=== PATIENT | female | born 1930 | race Caucasian/White ===

== ENCOUNTER 2017-02-04 03:01 | Observation (INO) | payer MEDICARE ==
[~2017-02-04] VITALS: Ht 157.5 cm; Wt 77.6 kg
[2017-02-04] VITALS (10 sets, daily range): BP systolic 129–178; BP diastolic 53–78; PULSE 55–80; RESP 17–19; O2SAT 94–98
[~2017-02-04 03:01] MED LIST: ACET-171 PO; AMLO5TAB2 PO; ASCO-294 PO; ASPI325T32 PO; ATOR40TA69 PO; CARV12.52 PO; CHOL200047 PO; CLOP75TA28 PO; DOCU-41 PO; FERR-74 PO; FURO40TA4 PO; GABA-500 PO; LISI-567 PO; MULT-1018 PO; NITR0.4T SL
--- NOTE | 2017-02-04 03:29 | ED.REPORT ---
HPI-Chest Pain 40 and Over Date of Service February 04, 2017 ED Provider: Payam Prince MD Pt is an 86 y/o female w/ a hx of NSTEMI Aug 2016, CAD s/p CABG x3, HTN, hyperlipidemia, CHF, chronic renal failure, presenting to the ED via EMS with her daughter c/o substernal chest pressure onset 1.5 hours prior to arrival. She has experienced similar symptoms previously which were related to cardiac disease. She was given nitro and morphine on route with some relief, but her chest pressure is still present at time of interview. She c/o associated SOB, peripheral edema which is unchanged. Pt denies nausea, vomiting, acid reflux. She has been seeing her pit furnace operator Dr. Lomeli multiple times recently for angina. Nursing Notes Stated Complaint: CHEST PAIN Chief Complaint: Chest Pain Nursing Notes Reviewed: Yes Allergies: Coded Allergies: codeine (Verified Allergy, Severe, 02/04/17) sulfadiazine (Verified Allergy, Severe, hives and swelling, 02/04/17) diltiazem HCl (Verified Allergy, Unknown, 02/04/17) enalapril maleate (Verified Allergy, Unknown, 02/04/17) enalaprilat dihydrate (Verified Allergy, Unknown, 02/04/17) iodine (Verified Allergy, Unknown, 02/04/17) shellfish derived (Verified Allergy, Unknown, 02/04/17) scopolamine (Verified Adverse Reaction, Severe, severe memory loss, ) Uncoded Allergies: grass, dust, maple trees (Allergy, Mild, 12/15/12) Scheduled Acetaminophen (Acetaminophen) 500 Mg Tablet 1,000 MG PO TID Amlodipine (Amlodipine) 5 Mg Tablet 5 MG PO DAILY Ascorbate Calcium (Vitamin C) 500 Mg Tablet 500 MG PO BID Aspirin (Aspirin) 325 Mg Tablet 325 MG PO DAILY Atorvastatin Calcium (Atorvastatin Calcium) 40 Mg Tablet 40 MG PO HS Carvedilol (Carvedilol) 12.5 Mg Tablet 6.25 MG PO BID Cholecalciferol (Vitamin D3) (Vitamin D3) 2,000 Unit Capsule 2,000 UNIT PO DAILY Clopidogrel (Clopidogrel) 75 Mg Tablet 75 MG PO DAILY Docusate Sodium (Colace) 100 Mg Capsule 100 MG PO BID Ferrous Sulfate (Feosol) 325 Mg Tablet 325 MG PO BIDWM Furosemide (Furosemide) 40 Mg Tablet 20 MG PO DAILY Gabapentin (Gabapentin) 100 Mg Capsule 100 MG PO TID Lisinopril (Lisinopril) 20 Mg Tablet 20 MG PO DAILY Multivitamin (Multi Vitamin Daily) 1 Each Tablet 0.5 TAB PO BID Scheduled PRN Nitroglycerin SL (Nitrostat) 0.4 Mg Tab.subl 0.4 MG SL Q5MIN PRN PRN For Chest Pain General Time Seen by MD: 03:29 Chief Complaint Chest pressure Hx Obtained From: Patient, EMS Arrived By: Ambulance Sudden in Onset?: Yes Onset Occurred: 1 - 4 hours ago Symptom Duration: Since onset Location: : Substernal Quality: Pressure Migration/Movement: Reports: None Severity: Current: Moderate Severity: Maximum: Moderate Recent Healthcare: Previous diagnosis Similar Sx Previous: Yes Past Medical History Past Medical History Congestive heart failure Coronary artery disease s/p three vessel bypass ~20 years ago Hypertension Hyperlipidemia NSTEMI 2015 Chronic renal failure Hx hyperkalemia Chronic normocytic anemia secondary to chronic kidney disease Chronic interstitial nephritis Past Surgical History Three-vessel Coronary Artery Bypass Graft ~20 years ago. Family History Denies family history of cardiovascular disease. Smoking History Never Smoker Social History Alcohol Use: "Social" Ambulatory Status Independent Review of Systems Constitutional: Denies: Chills, Fever Respiratory: Reports: Shortness of breath, Denies: Non-productive cough Cardiovascular: Reports: Chest pain, Edema GI: Denies: Abdominal pain, Nausea, Vomiting Complete sys rev & neg: except as marked. Physical Exam Initial Vital Signs Vital Signs (First) Date Time Temp Pulse Resp B/P Pulse Ox O2 Delivery O2 Flow Rate FiO2 5/25/17 03:08 36.3 57 18 178/53 94 Room Air Initial VS: Reviewed, Vital signs abnormal Head / Eyes: Atraumatic, Normocephalic, PERRL ENT: Mucous membranes moist, Conjunctiva normal, No scleral icterus Neck: Supple, Full range of motion Extremities: Vascular intact, Neuro intact Skin: Warm, Dry, No cyanosis Neurologic: Alert, Oriented, Nonfocal Psychiatric: Mood/affect normal, Behavior normal, Normal thought content General/Constitutional: Awake, Alert, Cooperative, Not toxic appearing Distress / Hydration: Positive: Distress mild Appearance / Presentation: Positive: Obese Hard of hearing Respiratory / Chest: Breath sounds NL, Breath sounds = bilat, No respiratory distress, No rales, No rhonchi, No wheezing, No retractions, No stridor, No chest tenderness Cardiovascular: Heart rate NL, Regular rhythm, Heart sounds NL, No gallop, No murmurs, No rubs, Cap refill not delayed, Peripheral circulation NL Gross edema of legs bilaterally Abdomen: Atraumatic, Soft, Non-tender, No guarding, No rebound, No distention, No palpable mass Interpretation & Diagnostics Lab Results Interpretation Result Diagram: 02/04/17 0358 02/04/17 0358 Test 02/04/17 03:58 02/04/17 05:00 White Blood Count 4.6th/mm3 (3.8-10.1) Red Blood Count 3.38mil/mm3 (3.90-5.20) Hemoglobin 11.1g/dL (12.0-15.6) Hematocrit 32.5% (35.0-46.0) Mean Corpuscular Volume 96.2fL (81-100) Mean Corpuscular Hemoglobin 32.8pg (27.0-35.0) Mean Corpuscular Hemoglobin Concent 34.2% (32.0-37.0) Red Cell Distribution Width 12.7% (12.3-15.4) Platelet Count 204bil/L (150-400) Neutrophils (%) (Auto) 41.9% (40-74) Lymphocytes (%) (Auto) 27.6% (14-46) Monocytes (%) (Auto) 14.5% (4-12) Eosinophils (%) (Auto) 15.4% (0-5) Basophils (%) (Auto) 0.2% (0-3) Sodium Level 136mEq/L (134-144) Potassium Level 4.7mEq/L (3.5-5.2) Chloride Level 96mEq/L (97-108) Carbon Dioxide Level 21mmol/L (18-29) Blood Urea Nitrogen 20mg/dL (8-27) Creatinine 1.19mg/dL (0.57-1.00) Estimat Glomerular Filtration Rate 61mL/min (>59) Glucose Level 112mg/dL (60-99) Calcium Level 8.9mg/dL (8.5-10.1) Magnesium Level 2.1mg/dL (1.6-2.6) Total Bilirubin 0.2mg/dL (0.0-1.2) Aspartate Amino Transf (AST/SGOT) 14U/L (0-50) Alanine Aminotransferase (ALT/SGPT) 8U/L (0-32) Alkaline Phosphatase 94U/L (25-165) Troponin T 0.010ug/L (0.0-0.011) Total Protein 7.0g/dL (6.4-8.4) Albumin 3.9g/dL (3.4-5.0) Activated Partial Thromboplast Time 28.9sec (22.8-33.0) ECG Interpretation ECG Interpretation: Sinus rhythm rate 56 LBBB Similar to prior EKG Time: 03:33 Interpreted by: ED physician X-Ray Chest Interpretation Chest Xray Interpretation: Surgical changes present View: Portable, 1 view Interpretation / Wet Read by: Wet read ED physician NL X-Ray Chest Findings: No infiltrate, No acute disease Re-Eval/Medical Decision Med Decision/Clinical Course 86-year-old with prolonged angina identical to prior DC and anginal episodes. Grudgingly better after treatment here. Treated with heparin, Nitropaste, and received aspirin. Admitted for completion of rule out protocol. Time of Eval: 05:06 Patient Status: Condition improved, Moderate relief, Pain improved Re-Evaluation/Progress Note: Pt rechecked. Informed pt of need for admission. Pt understands and agrees with plan for admission. All questions addressed. Consultation : Referral / Consult Name: Robert Tsang MD Consulted With: Hospitalist Call Returned at: 05:06 Crayon Sorting Machine Feeder: Will see patient, Agrees with eval, Agrees with plan, Accepts admit Counseled Regarding: Diagnosis, Lab results, Need for admission Discharge & Departure Primary Impression: Unstable angina Disposition: ADMITTED TO HOSPITAL Discharge Condition All VS Reviewed: Yes Condition: Stable Referrals: NOPCP (PCP) (Family) Crit Care Except Billable Proc Time Spent: 30-74 minutes Services Performed: Patient management by me, Time spent at bedside, Reviewing test results, Reviewing imaging, Discussing patient care, Documentation in record, Time with fam/surrogate Scribe Attestation Portions of this note were transcribed by Sathya De Los Santos. I, Dr. Ghotra personally performed the history, physical exam and medical decision-making; I reviewed and confirmed the accuracy of the information in the transcribed note. Signed by Ag Ty, 02/04/17 - 0345 Payam Prince MD February 04, 2017 03:29 SATHYA DE LOS SANTOS February 04, 2017 03:36
[2017-02-04] MEDS ORDERED: Heparin 25K Unit/500mL 0.45 NS 25,000 UNIT in IV Premix 1 EACH IV ONE ×2 (03:45→05:25)
[2017-02-04] MEDS ORDERED: Heparin 5,000 Unit/mL Inj IVPUSH ONE ×3 (03:45→05:45)
[2017-02-04 04:09] LABS: BASOPHILS % (AUTO) 0.2 % (0-3); EOSINOPHILS % (AUTO) 15.4 % (0-5); MONOCYTES % (AUTO) 14.5 % (4-12); Mean Corpuscular Hemoglobin 32.8 pg (27.0-35.0); Mean Corpuscular Volume 96.2 fL (81-100); NEUTROPHILS % (AUTO) 41.9 % (40-74)
[2017-02-04 04:28] LABS: Platelet Count 204 bil/L (150-400)
[2017-02-04] MEDS: Nitroglycerin 2% 1 Gm Ointment TOPICAL SCH ×2 (04:38→04:47)
[2017-02-04 04:45] LABS: Magnesium 2.1 mg/dL (1.6-2.6); TROPONIN T 0.01 ug/L (0.0-0.011)
[2017-02-04] MEDS ORDERED: Alum-Mag Hydrox-Simeth 30 mL Suspension PO PRN (05:25)
[2017-02-04] MEDS ORDERED: Ondansetron 2 mg/mL 2 mL Inj IVPUSH PRN (05:25)
[2017-02-04] MEDS ORDERED: Heparin 25K Unit/500mL 0.45 NS 25,000 UNIT in IV Premix 1 EACH IV SCH ×2 (05:45→10:50)
[2017-02-04 07:49] LABS: Creatine Kinase 46 U/L (21-215)
[2017-02-04] MEDS ORDERED: ATOR20TA65 PO (08:08)
[2017-02-04] MEDS ORDERED: FURO40TA4 PO (08:08)
[2017-02-04] MEDS ORDERED: GABA-500 PO (08:08)
[2017-02-04] MEDS: Ascorbic Acid 500 mg Tablet PO SCH ×2 (08:30→21:12)
[2017-02-04] MEDS ORDERED: MULTIVITAMIN PO SCH (08:30)
[2017-02-04] MEDS ORDERED: Nitroglycerin 2% 1 Gm Ointment TOPICAL SCH (08:30)
[2017-02-04] MEDS: Heparin 5,000 Unit/mL Inj IVPUSH PRN ×2 (08:37→08:42)
--- NOTE | 2017-02-04 08:52 | DRSVH ---
PROCEDURE: X-RAY CHEST ONE VIEW, PORTABLE ([id number]) INDICATIONS: CHEST PAIN TECHNIQUE: One view of the chest was acquired. COMPARISON: [facility], CR, XR CHEST 2VW, 08/28/2016, 18:18. [facility], CR , XR CHEST 1VW (PORTABLE), 08/27/2016, 5:11. FINDINGS: Surgical changes and devices: Median sternotomy wire is redemonstrated. Lungs and pleura: No pleural effusions or pneumothorax. Lungs are clear. Lung volumes are increase d with flattening of the hemidiaphragms suggesting COPD. Mediastinum: Mediastinal contours appear normal. Heart size is prominent for technique. Bones and chest wall: No suspicious bony lesions. Overlying soft tissues appear unremarkable. Bila teral shoulder arthropathy. Kyphoplasty bone cement visualized within 2 levels of the lumbar spine. IMPRESSION: No acute cardiopulmonary disease. Dictated by: Cuauhtemoc Christie RRA Interpreted: Maria Ines Nix MD on 02/04/2017 at 8:51 Transcribed by: MORENO on 02/04/2017 at 8:52 Approved by: Maria Ines Nix MD, PhD on 02/04/2017 at 9:40
[2017-02-04] MEDS ORDERED: Heparin 5,000 Unit/mL Inj IVPUSH PRN (10:50)
--- NOTE | 2017-02-04 11:33 | NUR ---
Case Management: HE and Medicare Part D pamphlet delivered and explained to pt. and daughter. Original placed in chart. Copy left at bedside. Cami Arredondo RN
--- NOTE | 2017-02-04 11:42 | NUR ---
SENIOR BUSINESS ANALYST consultation received. Pt was fatigued and requested to hold evaluation, but allowed SENIOR BUSINESS ANALYST to discuss home diet with daughter. Past SENIOR BUSINESS ANALYST eval recommended nectar thick liquids with meals and thin liquids between meals. Per daughter, pt drinks V8 with meals and does not use thickener for any liquids. Due to poor molar occlusion and description of home diet, recommendation is for dysphagia mechanical textures. Diet order was changed to dysphagia mechanical textures and V8 with meals. SENIOR BUSINESS ANALYST will follow and evaluate diet tolerance when pt is alert and ready to eat. Discussed with RN.
--- NOTE | 2017-02-04 12:48 | PCM.HPMED ---
Subjective Date of Service February 04, 2017 Primary Provider: Admitting Physician: Robert Tsang MD Primary Care Physician: Other,Physician Attending Physician: Robert Tsang MD Chief Complaint: chest pressure History of Present Illness: 86yo F w/ significant cardiac hx with CABG with 3vd 20yrs ago, recent NSTEMI in presented with severe chest pressure >15min last night. hx obtained with daughter and the patient. As per daughter, pt had similar episode of chest pressure three times in the past 2weeks. , , . and this was fourth episode. every episode occurred either when she was sleeping and with minimal exertion at home(going to the bathroom). pt stated that chest pressure from last night was so severe, pt woke up around 1-2am, pain was like "elephant sitting on the chest", didn't radiate, diffusely on mid chest. no sob, palpitation, nausea, vomiting, blurry vision, pt took nitrox2 by daughter, pressure didn't resolve, lasted >15min, decide to call 911. A week ago, pt had less severe similar episode, also with reflux burning on the chest, took tums, and also had nausea and dry heaving, pressure was resolved with rest for several hours. Yesterday, pt was first time seen by Sheet Metal Worker Supervisor Dr.Malone Sagastume at [place], recommended to repeat TTE, stress test, which has not happened yet. Of note, in last hospitalization, pt stated that she had similar chest pressure , noted to have troponin up to 1.17, pt was treated medically given severe SERA, pt was discharged on aspirin, plavix, statin, coreg. patient has been compliant to all of this meds. denied black/red stools. In ED, VS BP178/53, 80, 18, afebrile, 98% on RA. labs showed first trop negative , otherwise resolving SERA, pt received nitro paste, 1inch, maalox, zofran. heparin gtt started. EKG showed old LBBB. during the interview at [facility] [place], pt stated that pressure went to 2/10, likely since ED course, denied sob, chills, palpitation, fever, n/v/c/d. sick contacts, travel. Review of Systems: Pertinent positives as noted in history of present illness. All other systems were reviewed and are negative Allergies Coded Allergies: codeine (Verified Allergy, Severe, 02/04/17) sulfadiazine (Verified Allergy, Severe, hives and swelling, 02/04/17) diltiazem HCl (Verified Allergy, Unknown, 02/04/17) enalapril maleate (Verified Allergy, Unknown, 02/04/17) enalaprilat dihydrate (Verified Allergy, Unknown, 02/04/17) iodine (Verified Allergy, Unknown, 02/04/17) shellfish derived (Verified Allergy, Unknown, 02/04/17) scopolamine (Verified Adverse Reaction, Severe, severe memory loss, ) Uncoded Allergies: grass, dust, maple trees (Allergy, Mild, 12/15/12) Home Medications Scheduled Acetaminophen (Acetaminophen) 500 Mg Tablet 1,000 MG PO TID Amlodipine (Amlodipine) 5 Mg Tablet 5 MG PO DAILY Ascorbate Calcium (Vitamin C) 500 Mg Tablet 500 MG PO BID Aspirin (Aspirin) 325 Mg Tablet 325 MG PO DAILY Atorvastatin Calcium (Atorvastatin Calcium) 40 Mg Tablet 40 MG PO HS Carvedilol (Carvedilol) 12.5 Mg Tablet 6.25 MG PO BID Cholecalciferol (Vitamin D3) (Vitamin D3) 2,000 Unit Capsule 2,000 UNIT PO DAILY Clopidogrel (Clopidogrel) 75 Mg Tablet 75 MG PO DAILY Docusate Sodium (Colace) 100 Mg Capsule 100 MG PO BID Ferrous Sulfate (Feosol) 325 Mg Tablet 325 MG PO BIDWM Furosemide (Furosemide) 40 Mg Tablet 20 MG PO DAILY Gabapentin (Gabapentin) 100 Mg Capsule 100 MG PO TID Lisinopril (Lisinopril) 20 Mg Tablet 20 MG PO DAILY Multivitamin (Multi Vitamin Daily) 1 Each Tablet 0.5 TAB PO BID Scheduled PRN Nitroglycerin SL (Nitrostat) 0.4 Mg Tab.subl 0.4 MG SL Q5MIN PRN PRN For Chest Pain PMH PMH chronic diastolic congestive heart failure, CAD s/p three vessel bypass ~20 years ago, NSTEMI Hypertension Hyperlipidemia Surgical History Three-vessel Coronary Artery Bypass Graft ~20 years ago. Family History Denies family history of cardiovascular disease. Social History Hx Alcohol Use: No Hx Substance Use: No Smoking Status: Never Smoker Additional Information lives with family Exam Vital Signs Vital Sign - Last Date Time Temp Pulse Resp B/P Pulse Ox O2 Delivery O2 Flow Rate FiO2 02/04/17 08:55 36.4 58 17 163/66 94 Room Air Exam NAD, comfortably laying down on the bed no JVD, MMM, no LAD RRR, nl s1, s2, gr2 pansystolic M at apex CTAB, no w,c S,ND,NT,normoactive BS+ warm, trace edema, pulses 2/2 Lab and Diagnostics Result Diagram: 02/04/17 0358 02/04/17 0358 X-Rays, CTs and MRIs PROCEDURE: X-RAY CHEST ONE VIEW, PORTABLE ([id number]) INDICATIONS: CHEST PAIN TECHNIQUE: One view of the chest was acquired. COMPARISON: [facility], CR, XR CHEST 2VW, 08/28/2016, 18:18. [facility], CR, XR CHEST 1VW (PORTABLE), 08/27/2016, 5:11. FINDINGS: Surgical changes and devices: Median sternotomy wire is redemonstrated. Lungs and pleura: No pleural effusions or pneumothorax. Lungs are clear. Lung volumes are increased with flattening of the hemidiaphragms suggesting COPD. Mediastinum: Mediastinal contours appear normal. Heart size is prominent for technique. Bones and chest wall: No suspicious bony lesions. Overlying soft tissues appear unremarkable. Bilateral shoulder arthropathy. Kyphoplasty bone cement visualized within 2 levels of the lumbar spine. IMPRESSION: No acute cardiopulmonary disease. Dictated by: Cuauhtemoc Christie RRA Interpreted: Maria Ines Nix MD on 02/04/2017 at 8:51 Transcribed by: MORENO on 02/04/2017 at 8:52 Approved by: Maria Ines Nix MD, PhD on 02/04/2017 at 9:40 12-lead ECG sinus, old LBBB [id number] Assessment & Plan Acute, active chest pressure, POA, increase in frequency, atypical, tropx3 ngtd, no EKG chg only showed old LBBB, ddx: probable unstable angina vs GI origin given hx about heart burn. -given moderate to high risks with hx of CABG, recent NSTEMI, but with CKD, will get NM stress test first for risks stratification, possible cardiology consult -stop heparin gtt, continue home aspirin, plavix, coreg, statin, likely hold plavix tomorrow AM -nitro SL for active chest pain, stat EKG -O2, morphine if needed. -repeat TTE -will also try PPI 20mg bid, especially given chronic aspirin tx, probable GERD contributing to sx Chronic, stable chronic diastolic congestive heart failure, seems euvolemic, continue home dose lasix Hypertension, continue home coreg Hyperlipidemia, continue statin, s/p 80mg lipitor once today. Dispo: Patient is admitted under observation status with expectation that she will be discharged within 24-48 hours, diet:general dvt ppx:systemic AC, will switch to HSQ Full code Time spent 65min Joy De La Garza MD February 04, 2017 12:48
[2017-02-04] MEDS ORDERED: Pantoprazole 20 mg ER24 Tablet PO ONE (13:10)
[2017-02-04] MEDS: Pantoprazole 20 mg ER24 Tablet PO SCH ×2 (13:15→21:12)
--- NOTE | 2017-02-04 14:23 | NUR ---
Social work note - Initial Assessment Millie Hilliard is a 86 yr old admitted for chest pain. EMR reviewed: Pt has [employer] plan insurance, Her PCP is Dr Thapa in [place]. No LTC insurance, no VA benefits. Pt's family brought DPOA paperwork - copied and placed on the chart. Readmit score not available. See attached CM initial assessment. GROCERY CLERK CHECKING met with pt - Pt's son Seferino also in the room. GROCERY CLERK CHECKING introduced D/C planning and explained SW role. Pt lives at home with her daughter in [place]. She uses a FWW at baseline, gets assistance with medications, meals and chores. Pt has paid caregivers from [employer] who come 2 times a week for personal care/bathing. Pt states she wants to go home after d.c with family - Pt's Son agrees that they are able to help. Pt has used [facility] in the past - RN PT. Pt's family asked for a new referral as pt has gotten stronger after last hospitalization and would like RN PT. GROCERY CLERK CHECKING will ask MD for PT evaluation and to consult for Home health if warranted. Assessment: Pt would benefit from HH for RN PT after d/c. Plan: Home with family in [facility]. GROCERY CLERK CHECKING will follow for Home Health if needed. BRYANT WetzelSW Addendum: 02/04/17 at 1429 by HALIMA SCHNEIDER SS Amended: Links added.
--- NOTE | 2017-02-04 14:23 | NUR ---
Heparin Drip Patient was on heparin drip at 1000 units/hour. Patient had APTT drawn and resulted at 195.6. Heparin stopped and notified. discontinued heparin drip.
--- NOTE | 2017-02-04 14:54 | NUR ---
Daily activity Patient alert and oriented X3. Patient denied chest pain during my shift today. Patient has gotten up out of bed to use bathroom with 1 person assist and FWW. Patient denied any pain today. Patient has had a good appetite eating 75% or greater of here meals. Patient tired and currently resting in bed.
[2017-02-04] MEDS: Heparin 5,000 Unit/mL Inj SUBQ SCH (21:13)
[2017-02-05] VITALS (7 sets, daily range): BP systolic 147–192; BP diastolic 51–66; PULSE 56–65; RESP 18–20; O2SAT 96–98
--- NOTE | 2017-02-05 06:21 | NUR ---
BP/Carvedilol Pt scheduled to go to stress test today and daughter states that the pt's broom bundler from [place] instructed the pt to take her Carvedilol regardless. Night hospitalist called and Carvedilol administration verified with her. Hospitalist ordered for Carvedilol to be held before MIBI. Daughter Neetu called and updated about this decision, dtr. understands reasoning. AM BP was 193/65, MD called and order received to give AM Lisinopril and Amlodipine early. Pt denies any CP all shift.
[2017-02-05 07:33] LABS: Mean Corpuscular Hemoglobin 32.6 pg (27.0-35.0); Mean Corpuscular Volume 92.8 fL (81-100); Platelet Count 211 bil/L (150-400)
--- NOTE | 2017-02-05 08:17 | NUR ---
MIBI Pt off floor at this time for MIBI. Addendum: 02/05/17 at 1037 by ANDREE COFFEY RN Pt back at this time from procedure.
[2017-02-05 08:49] LABS: BASOPHILS % (AUTO) 3 % (0-3); EOSINOPHILS % (AUTO) 13 % (0-5); MONOCYTES % (AUTO) 10 % (4-12); NEUTROPHILS % (AUTO) 40 % (40-74)
[2017-02-05] MEDS: Pantoprazole 20 mg ER24 Tablet PO SCH (10:56)
[2017-02-05] MEDS: Ascorbic Acid 500 mg Tablet PO SCH (10:58)
[2017-02-05] MEDS: Heparin 5,000 Unit/mL Inj SUBQ SCH (10:59)
--- NOTE | 2017-02-05 13:05 | DRSVH ---
PROCEDURE PERFORMED: Pharmacological stress and rest myocardial perfusion imaging with gating to ass ess ejection fraction and regional wall motion. INDICATIONS: The patient is an 86-year-old female with a history of CABG and previous NSTEMI with re cent recurrent chest pain. COMPARISON: None. RADIOPHARMACEUTICAL: Stress: 23.7 mCi of technetium-99 tetrofosmin. Rest: 8.61 mCi of technetium-9 9 tetrofosmin. PHARMACOLOGIC STRESS: 0.4 mf of Lexiscan was infused per protocol with a normal hemodynamic response . She developed some mild dyspnea, headache and slight chest pressure. Her resting ECG shows a left bundle branch block that precludes ST segment analysis but there are no significant ST segment shift s with stress. She was given aminophylline 100 mg with resolution of her symptoms. There were no ar rhythmias. FINDINGS: 1. Raw Data: There is fair myocardial tracer uptake. Increased uptake is noted in the area of the thyroid, which can be taken up by hypermetabolic tissue; clinical correlation is recommended. The pa tient could not lie prone. 2. Quantitative Gated SPECT: Post-stress ejection fraction is estimated at 89%, likely an overestim ation of the true ejection fraction due to relatively small left ventricular volumes with an end kramer tolic volume of 67 mL. There are no focal wall motion abnormalities, and specifically, the lateral w all appears to have brisk contractility. 3. Myocardial Perfusion Imaging: Post-stress supine images show a mild perfusion defect in the prox imal and mid lateral wall, perhaps extending slightly into the proximal inferior wall. There are no prone images to assess for diaphragmatic attenuation. The resting images show a fairly similar perfu anjel pattern with only mild improvement at the periphery of the perfusion defect. CONCLUSIONS: 1. Abnormal myocardial perfusion study. 2. Relatively small, mild to moderate, predominantly fixed, but slightly reversible perfusion defect in the proximal and mid lateral wall, extending slightly into the proximal inferior wall, most likel y consistent with previous nontransmural infarction without a large volume of ischemia, and therefore this is not a high-risk study. 3. Normal left ventricular systolic function without any focal wall motion abnormality with relative ly small left ventricular volumes. 4. Mild dyspnea and chest discomfort with vasodilator stress. A chronic left bundle branch block pr events ST segment analysis. 5. Increased tracer uptake is noted in the region of the thyroid. This isotope can be taken up by h ypermetabolic tissue such as malignancy; clinical correlation is recommended. Dictated by: Bharathi Velez M.D. on 02/05/2017 at 11:43 Transcribed by: JOHANA on 02/05/2017 at 16:05 Approved by: Bharathi Velez M.D. on 02/05/2017 at 17:47 cc: Dr. Joy De La Garza
[2017-02-05] MEDS ORDERED: Isosorbide Mononitrate 30 mg ER24 Tablet PO ONE (13:20)
--- NOTE | 2017-02-05 13:24 | PCM.DIMED ---
Discharge Instructions Date of Service February 05, 2017 Dates of Hospitalization February 04, 2017 at 05:40 Discharge Diagnosis Discharge Diagnosis chest pain likely due to stable angina Medication Instructions Additional med instructions Please start taking Imdur ER 30mg daily Diet Discharge Diet: Low fat, Low Sodium, Heart Healthy Activity Discharge Activity: No restrictions Call your provider Call your provider for: Shortness of breath, Chest pain Patient Instructions Patient Instructions You were hospitalized with recurrent episode of chest pain, concerning for heart attack. You underwent stress test, which didn't show mild perfusion defect which may explain your symptoms. However, given it's low risk, no evidence of acute heart attack, your kidney disease. It was recommended to delay invasive work-ups. Please note that new medicine Imdur will be tried, dosage can be adjusted by your doctor based on symptoms. If you have recurrent chest pain, more frequently, more severe degree, Please return to the hospital. Follow-up plan Please follow up with your doctor in 2weeks Follow-up Provider: Alanis Thapa PA-C Follow-up with PCP in: 2 weeks Joy De La Garza MD February 05, 2017 13:24
[2017-02-05] MEDS ORDERED: ISOS30TA4 PO (13:25)
--- NOTE | 2017-02-05 13:52 | NUR ---
BLADE CHANGER screen day two. Pt to discharge today. CXR clear. Per RN, pt has refused thickened liquids. Per conversation with daughter yesterday, pt will not agree to thickened liquids. Pt has been tolerating dysphagia mechanical textures and thin liquids with no s/s of aspiration. No concerns per nursing. Per conversation with daughter yesterday, dysphagia is managed at home well. BLADE CHANGER will discharge as no acute needs are identified at this time.
--- NOTE | 2017-02-05 14:45 | NUR ---
Care Pt care transferred to Mika Thomas RN.
--- NOTE | 2017-02-05 14:57 | NUR ---
Social Work: Discharge Data: Pt is on day 1 of hospitalization. EMR reviewed. D/C orders are in. PT assessed pt, recommending no further PT needs. No d/c planning needs at htis time. [employer]ELOPER will continue to follow if needs arise. Assessment: Pt who is independent at baseline. Plan: Pt will d/c home via POV today. No d/c planning needs at htis time. [employer] DEVELOPER will continue to follow if needs arise. YINA Saha
--- NOTE | 2017-02-05 14:58 | NUR ---
Evaluation completed. Please go to "Notes" then click on "Assessments and Notes" (bottom left corner of screen). Then select appropriate discipline tab on top of screen.
--- NOTE | 2017-02-05 15:00 | NUR ---
Taking over care for pt. Report given by Moraima Miranda RN.
--- NOTE | 2017-02-05 16:49 | NUR ---
Discharge Reviewed discharge paperwork, care notes and medications with pt - disclaimer signed. IV's DCd intact, tele removed, all belongings with pt. Pt denies pain and SOB with no s/sx of distress. Escorting pt out by WC, daughter taking pt home.
--- NOTE | 2017-02-05 22:56 | PCM.DC.MED ---
Discharge Summary Date of Service February 05, 2017 Dates of Hospitalization Date of Hospital Admission February 04, 2017 at 05:40 Date of Discharge: February 05, 2017 Providers: Admitting Physician: Robert Tsang MD Primary Care Physician: Other,Physician Attending Physician: Robert Tsang MD Diagnosis at Time of Discharge Diagnosis at Time of Discharge Acute dx chest pain likely due to stable angina Chronic dx chronic diastolic congestive heart failure, Hypertension Hyperlipidemia, Procedures XRay, CTs & MRIs PROCEDURE: X-RAY CHEST ONE VIEW, PORTABLE ([id number]) INDICATIONS: CHEST PAIN TECHNIQUE: One view of the chest was acquired. COMPARISON: [facility], CR, XR CHEST 2VW, 08/28/2016, 18:18. [facility], CR, XR CHEST 1VW (PORTABLE), 08/27/2016, 5:11. FINDINGS: Surgical changes and devices: Median sternotomy wire is redemonstrated. Lungs and pleura: No pleural effusions or pneumothorax. Lungs are clear. Lung volumes are increased with flattening of the hemidiaphragms suggesting COPD. Mediastinum: Mediastinal contours appear normal. Heart size is prominent for technique. Bones and chest wall: No suspicious bony lesions. Overlying soft tissues appear unremarkable. Bilateral shoulder arthropathy. Kyphoplasty bone cement visualized within 2 levels of the lumbar spine. IMPRESSION: No acute cardiopulmonary disease. Dictated by: Cuauhtemoc Christie RRA Interpreted: Maria Ines Nix MD on 02/04/2017 at 8:51 Transcribed by: MORENO on 02/04/2017 at 8:52 Approved by: Maria Ines Nix MD, PhD on 02/04/2017 at 9:40 ECG 12 Lead sinus, old LBBB [id number] Other Diagnostics PROCEDURE PERFORMED: Pharmacological stress and rest myocardial perfusion imaging with gating to assess ejection fraction and regional wall motion. INDICATIONS: The patient is an 86-year-old female with a history of CABG and previous NSTEMI with recent recurrent chest pain. COMPARISON: None. RADIOPHARMACEUTICAL: Stress: 23.7 mCi of technetium-99 tetrofosmin. Rest: 8.61 mCi of technetium-99 tetrofosmin. PHARMACOLOGIC STRESS: 0.4 mf of Lexiscan was infused per protocol with a normal hemodynamic response. She developed some mild dyspnea, headache and slight chest pressure. Her resting ECG shows a left bundle branch block that precludes ST segment analysis but there are no significant ST segment shifts with stress. She was given aminophylline 100 mg with resolution of her symptoms. There were no arrhythmias. FINDINGS: 1. Raw Data: There is fair myocardial tracer uptake. Increased uptake is noted in the area of the thyroid, which can be taken up by hypermetabolic tissue ; clinical correlation is recommended. The patient could not lie prone. 2. Quantitative Gated SPECT: Post-stress ejection fraction is estimated at 89% , likely an overestimation of the true ejection fraction due to relatively small left ventricular volumes with an end diastolic volume of 67 mL. There are no focal wall motion abnormalities, and specifically, the lateral wall appears to have brisk contractility. 3. Myocardial Perfusion Imaging: Post-stress supine images show a mild perfusion defect in the proximal and mid lateral wall, perhaps extending slightly into the proximal inferior wall. There are no prone images to assess for diaphragmatic attenuation. The resting images show a fairly similar perfusion pattern with only mild improvement at the periphery of the perfusion defect. CONCLUSIONS: 1. Abnormal myocardial perfusion study. 2. Relatively small, mild to moderate, predominantly fixed, but slightly reversible perfusion defect in the proximal and mid lateral wall, extending slightly into the proximal inferior wall, most likely consistent with previous nontransmural infarction without a large volume of ischemia, and therefore this is not a high-risk study. 3. Normal left ventricular systolic function without any focal wall motion abnormality with relatively small left ventricular volumes. 4. Mild dyspnea and chest discomfort with vasodilator stress. A chronic left bundle branch block prevents ST segment analysis. 5. Increased tracer uptake is noted in the region of the thyroid. This isotope can be taken up by hypermetabolic tissue such as malignancy; clinical correlation is recommended. Dictated by: Bharathi Velez M.D. on 02/05/2017 at 11:43 Transcribed by: JOHANA on 02/05/2017 at 16:05 Approved by: Bharathi Velez M.D. on 02/05/2017 at 17:47 Brief History 86yo F w/ significant cardiac hx with CABG with 3vd 20yrs ago, recent NSTEMI in presented with severe chest pressure >15min last night. hx obtained with daughter and the patient. As per daughter, pt had similar episode of chest pressure three times in the past 2weeks. 10th, 13th, 18th. and this was fourth episode. every episode occurred either when she was sleeping and with minimal exertion at home(going to the bathroom). pt stated that chest pressure from last night was so severe, pt woke up around 1-2am, pain was like "elephant sitting on the chest", didn't radiate, diffusely on mid chest. no sob, palpitation, nausea, vomiting, blurry vision, pt took nitrox2 by daughter, pressure didn't resolve, lasted >15min, decide to call 911. A week ago, pt had less severe similar episode, also with reflux burning on the chest, took tums, and also had nausea and dry heaving, pressure was resolved with rest for several hours. Yesterday, pt was first time seen by [employer] Dr.Malone Sagastume at [place], recommended to repeat TTE, stress test, which has not happened yet. Of note, in last hospitalization, pt stated that she had similar chest pressure , noted to have troponin up to 1.17, pt was treated medically given severe SERA, pt was discharged on aspirin, plavix, statin, coreg. patient has been compliant to all of this meds. denied black/red stools. In ED, VS BP178/53, 80, 18, afebrile, 98% on RA. labs showed first trop negative , otherwise resolving SERA, pt received nitro paste, 1inch, maalox, zofran. heparin gtt started. EKG showed old LBBB. during the interview at [facility], pt stated that pressure went to 2/10, likely since ED course, denied sob, chills, palpitation, fever, n/v/c/d. sick contacts, travel. Hospital Course Acute dx chest pressure, POA, Given increase in frequency and severity with cardiac hx, this was concerning for ACS. However, Trops were normal x3, no EKG chg only showed old LBBB. Patient was initially started on heparin gtt, continued home aspirin, plavix, coreg, statin. on day 2, pt underwent pharmacololgic stress test, which showed Relatively small, mild to moderate, predominantly fixed, but slightly reversible perfusion defect in the proximal and mid lateral wall, extending slightly into the proximal inferior wall, most likely consistent with previous nontransmural infarction without a large volume of ischemia, and therefore this is not a high-risk study. Given this low risks nature, no signs of ACS, CKD, invasive w/u was not pursued. pain was thought to be from stable angina, Imdur ER 30mg was tried. patient tolerated well. pain was also resolved upon d/c. Plan was to continue Imdur and other home meds. Patient was steady on ambulation, deemed safe to d/c to home without service. Chronic dx chronic diastolic congestive heart failure, seems euvolemic, continued home dose lasix Hypertension, continued home coreg Hyperlipidemia, continued statin, s/p 80mg lipitor once today. Exam Vital Signs (Last) Date Time Temp Pulse Resp B/P Pulse Ox O2 Delivery O2 Flow Rate FiO2 02/05/17 13:33 36.4 60 18 164/66 97 Room Air Exam NAD, comfortably laying down on the bed no JVD, MMM, no LAD RRR, nl s1, s2, gr2 pansystolic M at apex CTAB, no w,c S,ND,NT,normoactive BS+ warm, trace edema, pulses 2/2 Test 02/04/17 03:58 02/04/17 09:30 02/04/17 10:56 02/04/17 11:36 Magnesium Level 2.1mg/dL (1.6-2.6) Total Creatine Kinase 46U/L (21-215) Creatine Kinase MB 1.3ng/mL (0.0-5.3) Creatine Kinase MB % % (0.0-5.0) Troponin T < 0.010ug/L (0.0-0.011) Hold Urine Received (Received) Activated Partial Thromboplast Time 195.6sec (22.8-33.0) Test 02/05/17 05:30 02/05/17 06:30 Sodium Level 133mEq/L (134-144) Potassium Level 4.5mEq/L (3.5-5.2) Chloride Level 95mEq/L (97-108) Carbon Dioxide Level 23mmol/L (18-29) Blood Urea Nitrogen 19mg/dL (8-27) Creatinine 1.12mg/dL (0.57-1.00) Estimat Glomerular Filtration Rate 66mL/min (>59) Glucose Level 86mg/dL (60-99) Calcium Level 8.2mg/dL (8.5-10.1) Total Bilirubin 0.2mg/dL (0.0-1.2) Aspartate Amino Transf (AST/SGOT) 14U/L (0-50) Alanine Aminotransferase (ALT/SGPT) 8U/L (0-32) Alkaline Phosphatase 79U/L (25-165) Total Protein 5.6g/dL (6.4-8.4) Albumin 3.1g/dL (3.4-5.0) White Blood Count 3.8th/mm3 (3.8-10.1) Red Blood Count 3.19mil/mm3 (3.90-5.20) Hemoglobin 10.4g/dL (12.0-15.6) Hematocrit 29.6% (35.0-46.0) Mean Corpuscular Volume 92.8fL (81-100) Mean Corpuscular Hemoglobin 32.6pg (27.0-35.0) Mean Corpuscular Hemoglobin Concent 35.1% (32.0-37.0) Red Cell Distribution Width 12.7% (12.3-15.4) Platelet Count 211bil/L (150-400) Neutrophils (%) (Auto) 40% (40-74) Lymphocytes (%) (Auto) 34% (14-46) Monocytes (%) (Auto) 10% (4-12) Eosinophils (%) (Auto) 13% (0-5) Basophils (%) (Auto) 3% (0-3) Discharge Medications Discharge Medications Amlodipine (Amlodipine) 5 Mg Tablet 5 MG PO DAILY (Reported) Ascorbate Calcium (Vitamin C) 500 Mg Tablet 500 MG PO BID Prescribed by: LUCIA MAHMOOD DO Aspirin (Aspirin) 325 Mg Tablet 325 MG PO DAILY (Reported) Atorvastatin Calcium (Atorvastatin Calcium) 20 Mg Tablet 20 MG PO DAILY ( Reported) Carvedilol (Carvedilol) 12.5 Mg Tablet 6.25 MG PO BID Prescribed by: LUCIA MAHMOOD DO Cholecalciferol (Vitamin D3) (Vitamin D3) 2,000 Unit Capsule 2,000 UNIT PO DAILY (Reported) Clopidogrel (Clopidogrel) 75 Mg Tablet 75 MG PO DAILY Prescribed by: LUCIA MAHMOOD DO Docusate Sodium (Colace) 100 Mg Capsule 100 MG PO BID Prescribed by: LUCIA MAHMOOD DO Furosemide (Furosemide) 40 Mg Tablet 40 MG PO DAILY (Reported) Gabapentin (Gabapentin) 100 Mg Capsule 100 MG PO BID (Reported) Isosorbide MN ER (Isosorbide MN ER) 30 Mg Tab.er.24h 30 MG PO DAILY Prescribed by: JOY FENG MD As needed Nitroglycerin SL (Nitrostat) 0.4 Mg Tab.subl 0.4 MG SL Q5MIN PRN PRN For Chest Pain Prescribed by: LUCIA MAHMOOD, DO Additional med instructions Please start taking Imdur ER 30mg daily Followup Plan Disposition: home Follow-up plan Please follow up with your doctor in 2weeks Discharge Diet: Low fat, Low Sodium, Heart Healthy Discharge Activity: No restrictions Patient Instructions You were hospitalized with recurrent episode of chest pain, concerning for heart attack. You underwent stress test, which didn't show mild perfusion defect which may explain your symptoms. However, given it's low risk, no evidence of acute heart attack, your kidney disease. It was recommended to delay invasive work-ups. Please note that new medicine Imdur will be tried, dosage can be adjusted by your doctor based on symptoms. If you have recurrent chest pain, more frequently, more severe degree, Please return to the hospital. Follow-up Provider: Alanis Thapa PA-C Follow-up with PCP in: 2 weeks Time spent 65min Joy Feng MD February 05, 2017 22:56
== END 2017-02-05 16:54 | disposition home or self-care (01) ==
LOC: EDUNIT# 03:01 → SED 03:01 → EDBD 03:01 → MPC 05:40
PROVIDERS: ADMIT Hospitalist; ATTEND Hospitalist
DX: I25.119 Atherosclerotic heart disease of native coronary artery with unspecified angina pectoris (principal); I50.22 Chronic systolic (congestive) heart failure; E78.5 Hyperlipidemia, unspecified; I10 Essential (primary) hypertension; Z79.82 Long term (current) use of aspirin; Z79.02 Long term (current) use of antithrombotics/antiplatelets; I44.7 Left bundle-branch block, unspecified; Z66 Do not resuscitate; I25.2 Old myocardial infarction; Z95.1 Presence of aortocoronary bypass graft
CPT/HCPCS: 36415; 71010; 78452; 80053; 82550; 82553; 82948; 83735; 84484; 85025; 85730; 90791; 93005; 93017; 97161; 99291; A9502; G0378; J0280; J1644; J2785